=== PATIENT | male | born 1985 | race Caucasian/White ===

== ENCOUNTER 2017-02-06 19:12 | Emergency (ER) | payer OTHER ==
[2017-02-06] MEDS ORDERED: Lidocaine 1% with EPINEPHrine 1:100,000 20 ML MDV INJECT ONE (19:16)
--- NOTE | 2017-02-06 19:39 | EDM.PDOC ---
ED HPI GENERAL MEDICAL PROBLEM - General Chief Complaint: Laceration Stated Complaint: laceration to arm Time Seen by Provider: 02/06/17 19:15 Source of Information: Reports: Patient History Limitations: Reports: No Limitations - History of Present Illness INITIAL COMMENTS - FREE TEXT/NARRATIVE: The patient got a new knife for [employer]. It was a curved blade knife and he was twirling it and it cut his right wrist. He initially thought it was arterial but the bleeding stopped by the time he got here. He is right handed. His tetanus is up to date. Onset: Sudden Duration: Minutes: Location: Reports: Lower Extremity, Right (Forearm) Quality: Reports: Sharp Severity: Mild Improves with: Reports: None Worsens with: Reports: None Context: Reports: Activity (Twirling a knife) Associated Symptoms: Reports: No Other Symptoms Right Lower Arm Pain Score (Numeric/FACES): 2 - Related Data Allergies Allergy/AdvReac Type Severity Reaction Status Date / Time prednisone Allergy Chest Pain Verified 02/06/17 19:22 Home Meds: Home Meds . [No Known Home Meds] 02/06/17 [History] Past Medical History - Past Health History Medical/Surgical History: Denies Medical/Surgical History Social & Family History - Tobacco Use Smoking Status *Q: Current Every Day Smoker Years of Tobacco use: 16 Packs/Tins Daily: 2 - Recreational Drug Use Recreational Drug Use: No ED ROS GENERAL - Review of Systems Review Of Systems: See Below Constitutional: Reports: No Symptoms HEENT: Reports: No Symptoms Respiratory: Reports: No Symptoms Cardiovascular: Reports: No Symptoms Endocrine: Reports: No Symptoms GI/Abdominal: Reports: No Symptoms : Reports: No Symptoms Musculoskeletal: Reports: Other (3cm laceration to the right forearm) ED EXAM, SKIN/RASH Exam: See Below Exam Limited By: No Limitations General Appearance: Alert, No Apparent Distress Ears: Normal External Exam Nose: Normal Inspection Head: Atraumatic, Normocephalic Neck: Normal Inspection Respiratory/Chest: No Respiratory Distress Extremities: Other (3cm laceration to the right inner distal forearm. He has a good radial pulse and good sensation distally.) ED SKIN PROCEDURES - Laceration/Wound Repair Right Arm Lac/Wound length In cm: 3 Appearance: Subcutaneous, Linear Distal NVT: Neuro & Vascular Intact, No Tendon Injury Anesthetic Type: Local Local Anesthesia - Lidocaine (Xylocaine): 1% with EPI Skin Prep: Saline Exploration/Debridement/Repair: Wound Explored, In a Bloodless Field, Explored to Base Closed with: Sutures Suture Size: 4-0 # of Sutures: 6 Suture Type: Nylon, Interrupted, Simple Suture Size: 3-0 # of Sutures: 1 Repaired with: Vicryl Tetanus Status Addressed: Yes Complications: No Course - Vital Signs Last Recorded V/S: Last Vital Signs Temp 97.1 F 02/06/17 19:21 Pulse 109 H 02/06/17 19:21 Resp 20 02/06/17 19:21 BP 184/116 H 02/06/17 19:21 Pulse Ox 99 02/06/17 19:21 - Orders/Labs/Meds Meds: Medications Discontinued Medications Generic Name Dose Route Start Last Admin Trade Name Cornelia PRN Reason Stop Dose Admin Lidocaine/Epinephrine 20 ml 02/06/17 19:16 Xylocaine 1% With Epinephrine 1:100,000 INJECT 02/06/17 19:17 ONETIME ONE Departure - Departure Time of Disposition: 19:40 Disposition: Home, Self-Care 01 Condition: Good Clinical Impression: Laceration of right forearm Qualifiers: Encounter type: initial encounter Qualified Code(s): S51.811A - Laceration without foreign body of right forearm, initial encounter - Discharge Information Referrals: PCP,Unknown [Primary Care Provider] - Additional Instructions: Wash the wound in warm soapy water 2 times per day and apply antibiotic ointment after. The sutures can be removed in 1 week. Look for any signs of infection such as redness, swelling, drainage or pain. If you see any signs of infection please return or follow up with your doctor. You may need oral antibiotics.
== END 2017-02-06 19:40 | disposition home or self-care (01) ==
LOC: JD.ED 19:12
DX: S51.811A Laceration without foreign body of right forearm, initial encounter (principal); F17.210 Nicotine dependence, cigarettes, uncomplicated; Z88.8 Allergy status to other drugs, medicaments and biological substances; W26.0XXA Contact with knife, initial encounter
CPT/HCPCS: 12002; 99282-25; 99283-25

== ENCOUNTER 2018-10-23 17:23 | Emergency (ER) | payer BC ==
--- NOTE | 2018-10-23 17:59 | EDM.PDOC ---
ED HPI GENERAL MEDICAL PROBLEM - General Chief Complaint: Neck Problem Stated Complaint: NECK PAIN Time Seen by Provider: 10/23/18 17:35 Source of Information: Reports: Patient History Limitations: Reports: No Limitations - History of Present Illness INITIAL COMMENTS - FREE TEXT/NARRATIVE: patient is a 33-year-old male presents to the ED complaining of right-sided neck discomfort along the base of his neck. Patient states this discomfort started October 01 while working. 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 During that time he strain with lifting the door causing discomfort. HEENT has been waxing waning in intensity worsen night when he is resting. Pain gets better with activity. He's been evaluated by chiropractor who adjusted. In addition he states at home he stood up in a confined area and hit his head on a board causing compression of his neck. The only worsen his neck discomfort. At times he does have some pain that radiates down his arm into his first second and third fingers. There's been no weakness noted to the upper extremities. He currently has no n/t. Pain is mild in nature. He's had no previous injury to the cervical spine and/or MRI. He has been taking ibuprofen and Aleve with no relief. He denies any other complaints at this time. He has a appointment scheduled with Amanda Solis for next week. Right Neck Pain Score (Numeric/FACES): 6 - Related Data Allergies Allergy/AdvReac Type Severity Reaction Status Date / Time prednisone Allergy Chest Pain Verified 10/23/18 17:35 Home Meds: Home Meds Cyclobenzaprine [Flexeril] 10 mg PO TID PRN #21 tab 10/23/18 [Rx] Past Medical History - Past Health History Medical/Surgical History: Denies Medical/Surgical History Respiratory History: Reports: Asthma - Past Surgical History Musculoskeletal Surgical History: Reports: Carpal Tunnel, Other (See Below) Other Musculoskeletal Surgeries/Procedures:: knee sx; menicus Social & Family History - Family History Family Medical History: Noncontributory - Tobacco Use Smoking Status *Q: Current Every Day Smoker Years of Tobacco use: 20 Packs/Tins Daily: 1 - Caffeine Use Caffeine Use: Reports: Coffee, Energy Drinks, Soda, Tea - Recreational Drug Use Recreational Drug Use: No ED ROS GENERAL - Review of Systems Review Of Systems: ROS reveals no pertinent complaints other than HPI. ED EXAM, UPPER BACK/NECK PAIN - Physical Exam Exam: See Below Exam Limited By: No Limitations General Appearance: Alert, WD/WN, No Apparent Distress Eye Exam: Bilateral Eye: Normal Inspection Ears Exam: Hearing Grossly Normal Nose Exam: Normal Inspection, Normal Mucousa, No Blood Throat/Mouth Exam: Normal Inspection, Normal Voice, No Airway Compromise Head Exam: Atraumatic, Normocephalic Neck Exam: Full Range of Motion, Normal Alignment, Normal Inspection, Tender Lateral (along the base of the neck right side. Increased with palpation on the soft tissue structures. No radiation discomfort with palpation down his arm. No thoracic back pain with palpation as well. No weakness discrepancy as to the upper extremities.no sensory deficits noted as well.). 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 He has no pain with axial loading of the neck. No sniffing decreased range of motion noted. Pain along the lateral aspect of the neck along the soft tissue structures with no radiation of discomfort down his arm. There is no weakness discrepancy is to his upper extremities. Sensation is fully intact. I suspect he has a strained cervical/trapezius muscle aggravated by activities at work. treatment consist of ice, heat, massage, ibuprofen/ Tylenol, and also Flexeril. I will have patient follow up with PCP as scheduled for next week to which they can discuss PT and MRI. Return precautions were discussed with the patient. He had no further questions or concerns and agreed with plan. In addition patients blood pressure with admission was quite high. Patient admits to drinking excessive amounts of caffeine. Post discharge patient's blood pressure is 163/111. I've instructed the patient to follow up with his PCP for further management of hypertension. I discussed with the patient if his blood pressure continues to be elevated as such he is at increase risk of stroke or CAD. I have instructed the patient to stop smoking, follow the DASH diet, refrain from caffeine use, lose weight, and exercise at least 5 times a week 30 minutes of moderate intensity. Departure - Departure Time of Disposition: 17:52 Disposition: Home, Self-Care 01 Condition: Good Clinical Impression: Neck pain on right side - Discharge Information Prescriptions: Cyclobenzaprine [Flexeril] 10 mg PO TID PRN #21 tab PRN Reason: Pain Instructions: Radicular Pain, How to Take Your Blood Pressure, DASH Eating Plan , Hypertension, [id number], Preventing Hypertension, Cervical Sprain, Easy-to- Read Referrals: PCP,None [Primary Care Provider] - Forms: ED Department Discharge, ED Return to Work/School Form Additional Instructions: Take the Flexeril as prescribed for right sided lower neck discomfort. Also may utilize ibuprofen and Tylenol and alternate fashion. Utilize capsaicin cream as needed throughout the course today for pain. Apply heat with gentle massage and then ice thereafter as needed for relief. Keep appointment as scheduled with PCP for next week. physical therapy along with MRI of the neck may be of benefit. Please see PCP to have these ordered. In addition your blood pressure is quite elevated with admission to the ED. On discharge blood pressure was 163/ 111. I have provided materials on blood pressure management. Stop smoking. Stop drinking excessive amounts of caffeine. Follow the DASH diet. Exercise 5 times a week 30 minutes in duration moderate intensity. Loose some weight and hopes this will control your blood pressure. follow the instructions as listed below for checking your blood pressure. Please return back to the ED at any time he develop any new or worsening symptoms. Do not drive while taking the Flexeril. Refrain from any activities that cause worsening pain. Checked your blood pressure every other day at different times during the day. Allow yourself approximately 15 minutes to relax prior to taking. Do not take if in pain, with increased anxiety, or just had exercised. Keep a log with the blood pressure readings. Take your blood pressure machine and log with you to your next appointment with PCP to ensure blood pressure machine is calibrated appropriately.
== END 2018-10-23 18:12 | disposition home or self-care (01) ==
LOC: JD.ED 17:23
DX: M54.2 Cervicalgia (principal); F17.210 Nicotine dependence, cigarettes, uncomplicated; Z88.8 Allergy status to other drugs, medicaments and biological substances
CPT/HCPCS: 99283

== ENCOUNTER 2021-12-17 20:57 | Emergency (ER) | payer BC ==
[2021-12-17] MEDS ORDERED: fentaNYL 100 MCG/2 ML SDV IVPUSH ONE ×2 (21:25→22:29)
[2021-12-17] MEDS ORDERED: Lactated Ringers 1,000 ML IV SCH (21:30)
[2021-12-17] MEDS ORDERED: ceFAZolin 2 GM in Sodium Chloride 0.9% 50 ML IV ONE (22:13)
[2021-12-17] MEDS ORDERED: Acetaminophen/HYDROcodone 325-5 MG Tab PO ONE (22:50)
[2021-12-18] MEDS ORDERED: fentaNYL 100 MCG/2 ML SDV IVPUSH ONE (00:13)
== END 2021-12-18 01:30 | disposition home or self-care (01) ==
LOC: JD.ED 20:57
DX: S91.302A Unspecified open wound, left foot, initial encounter (principal); I10 Essential (primary) hypertension; Z88.8 Allergy status to other drugs, medicaments and biological substances; Z79.899 Other long term (current) drug therapy; W34.00XA Accidental discharge from unspecified firearms or gun, initial encounter
CPT/HCPCS: 36415; 73630; 73700; 80053; 85025; 96361; 96365; 96375; 96376; 99284; A9270; J0690; J3010; J7120

== ENCOUNTER 2023-12-20 05:47 | Emergency (ER) | payer BC ==
[2023-12-20] MEDS ORDERED: Sodium Chloride 0.9% 10 ML Syringe FLUSH PRN (05:53)
[2023-12-20 06:19] LABS: BASOPHILS PERCENT AUTO 0.5 % (0.0-1.0); EOSINOPHILS ABSOLUTE AUTO 0.2 K/mm3 (0.0-0.4); EOSINOPHILS PERCENT AUTO 1.8 % (0.0-6.0); HEMATOCRIT 40.8 % (42.0-52.0); IMMATURE GRAN ABSOLUTE AUTO 0.03 K/mm3 (0.00-0.05); IMMATURE GRAN PERCENT AUTO 0.3 % (0.0-0.4); LYMPHOCYTES ABSOLUTE AUTO 3.1 K/mm3 (1.0-4.8); MEAN CORPUSCULAR HGB CONC 34.3 g/dl (32.0-36.0); MEAN CORPUSCULAR VOLUME 87.6 fl (83.0-99.0); MEAN PLATELET VOLUME 9.1 fl (9.4-12.4); MONOCYTES ABSOLUTE AUTO 0.6 K/mm3 (0.0-0.8); MONOCYTES PERCENT AUTO 6.6 % (0.0-8.0); NEUTROPHILS ABSOLUTE AUTO 4.9 K/mm3 (1.8-7.7); NEUTROPHILS PERCENT AUTO 55.8 % (41.0-71.0); PLATELET COUNT,PLT 376 K/mm3 (150-400); RED BLOOD CELL COUNT 4.66 M/mm3 (4.52-5.90); WHITE BLOOD CELL COUNT,WBC 8.78 K/mm3 (3.9-11.3)
[2023-12-20 06:54] LABS: A/G RATIO 0.9 (1-2); ALBUMIN 3.8 g/dl (3.4-5.0); ANION GAP 15.3 (5-15); BILIRUBIN TOTAL 0.5 mg/dL (0.2-1.0); BUN/CREATININE RATIO 6.4 (14-18); CALCIUM 8.9 mg/dL (8.5-10.1); CREATININE 1.1 mg/dL (0.7-1.3); EST CRCL DRUG DOSING (CG) 91.05 mL/min; POTASSIUM,K 3.3 mEq/L (3.5-5.1); PROTEIN TOTAL,TP 7.9 g/dl (6.4-8.2); TSH 1.91 uIU/mL (0.358-3.74)
[2023-12-20 08:58] LABS: AMPHETAMINES SCREEN, URINE NEGATIVE (CUTOFF=500); BARBITURATE SCREEN,URINE NEGATIVE (CUTOFF=200); BENZODIAZEPINES SCREEN,URINE NEGATIVE (CUTOFF=150); BUPRENORPHINE SCREEN,URINE NEGATIVE (CUTOFF=10); METHADONE SCREEN, URINE NEGATIVE (CUT0FF=200); METHAMPHETAMINES SCREEN, URINE NEGATIVE (CUTOFF=500); OXYCODONE SCREEN,URINE PRESUMPTIVE POSITIVE (CUT0FF=100); THC SCREEN,URINE 20 NG/ML NEGATIVE (CUTOFF=50)
== END 2023-12-20 09:05 | disposition home or self-care (01) ==
LOC: JD.ED 05:47
DX: T40.2X1A Poisoning by other opioids, accidental (unintentional), initial encounter (principal); I10 Essential (primary) hypertension; J45.909 Unspecified asthma, uncomplicated; Z88.8 Allergy status to other drugs, medicaments and biological substances; Z79.82 Long term (current) use of aspirin; Z79.899 Other long term (current) drug therapy
CPT/HCPCS: 36415; 80053; 80143; 80179; 80306; 80307; 84443; 85025; 93005; 99284